=== PATIENT | male | born 1980 | race Two or more races ===

== ENCOUNTER 2020-10-03 19:06 | Emergency (ER) | payer OTHER ==
[~2020-10-03] VITALS: Ht 170.2 cm; Wt 104.3 kg
[2020-10-03 19:45] VITALS: BP 132/81
== END 2020-10-03 20:05 ==
LOC: ER 19:06
DX: Z04.3 Encounter for examination and observation following other accident (principal); V49.9XXA Car occupant (driver) (passenger) injured in unspecified traffic accident, initial encounter; Y93.89 Activity, other specified; Y92.89 Other specified places as the place of occurrence of the external cause; Y99.8 Other external cause status